=== PATIENT | female | born 1975 | race Caucasian/White ===

== ENCOUNTER 2017-03-28 03:24 | Emergency (ER) | payer SELFPAY ==
[~2017-03-28] VITALS: Ht 154.9 cm; Wt 76.6 kg
[2017-03-28 03:24] VITALS: Ht 154.9 cm; Wt 76.6 kg
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
[2017-03-28] MEDS ORDERED: BUPIVACAINE 0.5% (5mg/ml) 30ml INJ SDV INFIL ONE (03:30)
--- NOTE | 2017-03-28 03:35 | NUR ---
BATHROOM PT AMBULATORY TO BATHROOM TO VOID
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
--- NOTE | 2017-03-28 03:43 | NUR ---
PHONE PT ON PHONE WITH FEMALE FRIEND
--- NOTE | 2017-03-28 03:59 | NUR ---
LAB LAB AT BEDSIDE FOR BLOOD DRAW
[2017-03-28] MEDS ORDERED: NO ROUTINE MEDS (04:00)
--- NOTE | 2017-03-28 04:00 | NUR ---
CT PT TAKEN TO CT PER CART
--- NOTE | 2017-03-28 04:05 | NUR ---
ROOM PT RETURNED TO ROOM 1 PER W/C FROM CT
--- NOTE | 2017-03-28 04:11 | NUR ---
LOCAL BUPIVOCAINE USED LOCAL TO LACERATION BY DR STEWART PT SILVANA WELL
--- NOTE | 2017-03-28 04:14 | NUR ---
WOUND CARE WOUND CLEANED WITH CHLORHEXADINE BY DR STEWART
--- NOTE | 2017-03-28 04:17 | NUR ---
SUTURES SUTURES PLACED TO LACERATION BY DR STEWART
[2017-03-28] MEDS ORDERED: NEOMYCIN/POLYM/BACITR OINT PACKET TOP ONE (04:30)
--- NOTE | 2017-03-28 04:55 | NUR ---
OINT/DRSG TRIPLE CARE OINT AND DRSG APPLIED TO WOUND COBAN TO HOLD PRESSURE ON DRSG PT SILVANA WELL
--- NOTE | 2017-03-28 05:00 | NUR ---
INSTRUCTIONS DISMISSAL INSTRUCTIONS GIVEN TO PT VERBALIZED UNDERSTANDING OF ALL
[2017-03-28 05:02] VITALS: BP 132/90; PULSE 114; RESP 16; TEMP 98.2; O2SAT 96
--- NOTE | 2017-03-28 05:02 | NUR ---
DISMISS PT DISMISSED AMBULATORY WILL CALL FOR [facility] FROM [facility]
--- NOTE | 2017-03-29 09:35 | DI ---
Indication: ITS.REASON: fall, right frontal head injury PROCEDURE: CT HEAD W/O CONTRAST: Encounter: Initial Comparison: None Technique: Axial CT images through the head were performed without contrast. Iterative Reconstruction dose reducing technique was utilized. FINDINGS: The ventricles are of normal size, shape, and configuration for the patient's age. There is no evidence of acute intracranial hemorrhage, midline displacement, or mass effect. The CT attenuation of the brain parenchyma is normal within the cerebellum, brain stem, and cerebral hemispheres. The tympanic cavities and mastoid air cells are free of appreciable disease. There are no definite fractures of the skull base, calvarium, or visualized portion of the midface. Right frontal scalp laceration and swelling. IMPRESSION: No CT evidence of acute traumatic intracranial injury. There is a preliminary report by [employer]. .
== END 2017-03-28 05:02 | disposition home or self-care (01) ==
LOC: ED 03:24
DX: S01.81XA Laceration without foreign body of other part of head, initial encounter (principal); F10.120 Alcohol abuse with intoxication, uncomplicated; Y90.6 Blood alcohol level of 120-199 mg/100 ml; W19.XXXA Unspecified fall, initial encounter; Y93.9 Activity, unspecified; Y92.89 Other specified places as the place of occurrence of the external cause; Y99.8 Other external cause status
CPT/HCPCS: 36415; 80307

== ENCOUNTER 2018-04-22 14:44 | Inpatient (IN) ==
[2018-04-22] MEDS ORDERED: LEVOFLOXACIN PB 750 MG/150 ML BAG IV ONE (14:57)
[2018-04-22] MEDS ORDERED: NS 1,000 ML IV ONE (14:57)
[2018-04-22] MEDS: SALINE FLUSH 10ml SYRINGE IVF PRN (15:02)
[2018-04-22] MEDS ORDERED: NS FLUSH BAG 500ml IV PRN (15:06)
--- NOTE | 2018-04-22 15:39 | Emergency Department Report ---
General Adult HPI - General Chief complaint: Medical Emergency Stated complaint: chills, numbness, soa, lower left back pain Time Seen by Provider: 04/22/18 14:57 Source: patient Mode of arrival: ambulatory Limitations: no limitations - History of Present Illness HPI narrative: Patient is a 42 yo female with dysuria and urinary frequency x 2 wks. L sided pain ab pain with radiation to L flank started today. Fever last night and again today. Has had shaking chills today. Ibuprofen at 7am. NO n/v. No h/o UTI or kidney stones. No PCP. Pain 03/02. - Related Data Home Medications Medication Instructions Recorded Confirmed Ibuprofen 800 mg PO Q8H PRN 04/22/18 04/22/18 Allergies Allergy/AdvReac Type Severity Reaction Status Date / Time latex Allergy Intermediate Verified 04/22/18 15:19 acetaminophen Allergy Unknown Verified 04/22/18 15:19 Review of Systems All systems: reviewed and negative except as stated (dysuria, pain in L side, fever, chills, SOA, pain in L side when taking a deep breath) [facility] Patient Stated Medical History Gastroesophageal Reflux Yes Disease Hx Urinary Tract Infection Yes: HX- LONG AGO Other Musculoskeletal Yes: FIBROMYALGIA Depression Yes Post Traumatic Stress Disorder Yes Now No Surgical History: c sect x 3. ganglion cyst removal L wrist. tendon surgery R thumb. tubal Family History: Father - - of food poisoning Mother - arthritis, thyroid d/o - Social History Smoking status: Light tobacco smoker (social smoker. 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 Previously saw Genesis martin in [place]. Physical Exam - Limitations Limitations: no limitations - General General appearance: in no apparent distress - Normal Exams: Head:: Normocephalic without trauma Eyes:: Pupils are PERRLA w/ EOMI Neck:: Full range of motion, without adenopathy Chest/Respirations:: Clear all [place] Cardiovascular:: capillary refill Abdomen:: non-distended Integumentary:: No rashes Neurological:: Patient is alert, and oriented, exams w/o gross deficits Psychiatric:: Patient exhibits, appropriate attention - Cardiovascular Cardiovascular exam: Present: tachycardia - Abdominal Exam Abdominal exam: Present: tenderness (L flank and L side of abd) Course Vital Signs Temperature 101.8 F H 04/22/18 14:47 Pulse Rate 121 H 04/22/18 14:47 Respiratory Rate 36 H 04/22/18 14:47 Blood Pressure 193/106 H 04/22/18 14:47 Pulse Oximetry 100 04/22/18 14:47 Temperature 103.3 F H 04/22/18 15:31 Pulse Rate 129 H 04/22/18 15:15 Respiratory Rate 26 H 04/22/18 15:15 Blood Pressure 146/83 H 04/22/18 15:15 Pulse Oximetry 97 04/22/18 15:15 Medical Decision Making - MDM Narrative Medical decision making narrative: Patient with severe sepsis secondary to pyelo. She has lactate of 3.4. Bolused 2 L NS in ER. Levaquin started after BC's were drawn. Dr Kitchen accepted pt for admission to medical floor. - Lab Data Lab results reviewed: Yes: I reviewed the patient's lab results. Result diagrams: 04/22/18 15:04 04/22/18 15:04 Lab Results 04/22/18 Range/Units 15:04 Turbidity < 20 (0-20) Sodium 143 (134-144) MEQ/L Potassium 3.7 (3.6-5) MEQ/L Chloride 102 (98-107) MEQ/L Carbon Dioxide 24 (22-30) MEQ/L Anion Gap 17 H (5-15) meq/L BUN 14.0 (7-17) MG/DL Creatinine 1.0 (0.7-1.2) mg/dL GFR Calculation 61 BUN/Creatinine Ratio 14 (6-26) RATIO Glucose 102 (65-110) MG/DL Calculated Osmolality 276 (261-280) MOSM/KG Calcium 9.4 (8.4-10.2) MG/DL Total Bilirubin 0.90 (0.20-1.30) MG/DL Icterus Index < 2 (0-7) AST 23 (14-36) U/L ALT 35 (1-35) U/L Alkaline Phosphatase 139 H (38-126) U/L Total Protein 8.9 H (6.3-8.2) g/dL Albumin 4.9 (3.5-5.0) g/dL Globulin 4.0 H (2.4-3.6) G/DL Albumin/Globulin Ratio 1.2 (1.1-2.2) RATIO Plasma Lactate 3.4 H (0.6-2.2) MMOL/L Specimen Hemolysis < 15 (0-25) Disposition Clinical Impression: Pyelonephritis, Severe sepsis - Seen By: midlevel
[2018-04-22] MEDS: NS 1,000 ML IV SCH ×2 (16:59→18:39)
[2018-04-22 17:26] VITALS: BMI 33.0
[2018-04-22] MEDS ORDERED: PROCHLORPERAZINE 10 MG/2 ML INJECTION IVP PRN (17:32)
[2018-04-22] MEDS: NS with KCL 20 mEq 1,000 ML IV SCH (18:01)
--- NOTE | 2018-04-22 18:21 | History & Physical Report ---
History of Present Illness Date: 04/22/18 Chief complaint: Dysuria, Fever/Chills HPI: Alysha Rose is a 42 y/o female who presents to [facility] ED secondary to dysuria and fever/chills. Reports urinary frequency, urgency, and discomfort for the last 2 weeks. Did try over the counter treatments for urinary tract infection and had been drinking cranberry juice to help, but with little improvement of symptoms. This morning, woke up with left flank pain - not had this previously. Was able to go to work, but while working started running temp and developed a sensation of feeling VERY cold and had uncontrolled shaking. Does report nausea but without emesis. Appetite decreased to day-able to keep liquids in. No change in bowel function. No chest pressure or palpitations. Flank pain would make breathing more difficult-hard to take a deep breath due to discomfort. Notes feels achy and crampy in general. No trauma. With worsening symptoms, presents to ED for evaluation. Temp elevated at 101.8, increasing to 103.3 while in ED. HR 120 with RR 26-36. Initial BP elevated at 193 systolic, decreased to 130 systolic. Lab showing normal WBC at 7.6%, but 69% neutrophils and 8% bands. Lactate elevated at 3.4. With concern for severe sepsis syndrome secondary to UTI/Pyelonephritis, Dr Kitchen notified and patient place in inpatient admission status in initiate treatment. Anticipate greater than 2 midnights of care needed. Review of Systems All systems PM: 10-point ROS was reviewed, no additional remarkable complaints except - Constitutional Constitutional: Present: chills, fever(s), increased appetite - EENMT Nose: Present: allergies - Cardiovascular Cardiovascular: Absent: palpitations, edema Vascular: Absent: pedal edema, unilateral swelling - Respiratory Respiratory: Absent: cough, chest congestion - Gastrointestinal Gastrointestinal: Present: nausea. Absent: constipation, diarrhea - Musculoskeletal Musculoskeletal: Present: muscle cramps, myalgias - Neurological Neurological: Absent: focal weakness Past Medical History Medical History Updates: GERD, Fibromyalgia, Seasonal allergies, Depression, PTSD Surgical History: c sect x 3. ganglion cyst removal L wrist. tendon surgery R thumb. tubal Family History: Father at age 57 - suspected food poisoning. Mother living - poor health, arthritis Family History: As Above - Social History Smoking status: Current some day smoker Alcohol intake frequency: a few times a month Household members: children (2 children ) Social history: No PCP Medications Home Medications Medication Instructions Recorded Confirmed Type Ibuprofen 800 mg PO Q8H PRN 04/22/18 04/22/18 History Allergies Allergy/AdvReac Type Severity Reaction Status Date / Time latex Allergy Intermediate Verified 04/22/18 15:19 acetaminophen Allergy Unknown Verified 04/22/18 15:19 Exam Vital Signs: Temperature 101.3 F H 04/22/18 17:23 Pulse Rate 125 H 04/22/18 17:23 Respiratory Rate 16 04/22/18 17:23 Blood Pressure 130/78 04/22/18 17:23 Pulse Oximetry 99 04/22/18 17:23 Telemetry Rhythm: Sinus Tachycardia Height/Weight/BMI: Height 1.57 m Weight 82.1 kg Body Mass Index 33.0 - Constitutional Present: well nourished, well developed, obese, cooperative - Routine HEENT Exam Head: Present: normocephalic, atraumatic Eye: Present: EOMI, PERRL, normal accommodation. Absent: conjunctival icterus ENT: Present: mucous membranes moist - Routine Neck Exam Present: supple, full ROM, trachea midline - Routine Respiratory Exam Present: CTA bilaterally. Absent: prolonged expiratory phase, respiratory distress - Routine Cardiovascular Exam Present: no murmur, tachycardia (Regular ) - Routine Abdominal Exam Present: soft, normoactive bowel sounds, non distended, non tender. Absent: guarding - Routine Extremities Exam Present: no edema, pulses intact. Absent: cyanosis, clubbing - Routine Back/Spine/Pelvis Exam Back/Spine: Present: CVA tenderness (Left side) - Routine Skin Exam Present: intact, warm. Absent: dry (Moist) - Routine Neurological Exam Present: alert, oriented X3, CN II-XII intact, moving all extremities, vision grossly intact, hearing grossly intact, normal speech. Absent: motor deficit, altered mental status - Routine Psychiatric Exam Present: normal affect, normal thought process, cooperative Results - Labs CBC & Chem 7: 04/22/18 15:04 04/22/18 15:04 Assessment and Plan (1) Severe sepsis Current visit: Yes Status: Acute (2) Pyelonephritis Current visit: Yes Status: Acute Assessment and Plan: Assessment Severe sepsis syndrome Manifestations: Tachycardia, Tachypnea, Febrile, Elevated Lactate. Source urine UTI/Pyelonephritis Tachycardia GERD by Hx Fibromyalgia Depression/PTSD by history Obesity with BMI 33.1 Plan Inpatient admission to [facility] for treatment of severe sepsis secondary to UTI/ Pyelonephritis. Anticipate greater than 2 midnights of care needed. Levofloxacin 750mg initiated in ED, will continue daily. Check on blood and urine cultures taken in ED. Give 1L NS bolus in ED. Will repeat another 1L bolus and then change IVF to NS with 20KCl at 150cc/hr. Ibuprofen and heating pain prn pain. Compazine and Zofran prn nausea. RT for tobacco cessation. SCD for DVT prevention. Trend lactate. Will check Procalcitonin with next Lactate. Recheck CBC and BMP in am. Check Mg as potassium low normal. Full code per her requests. Will need to work on PCP for time of discharge. DVT Prophylaxis: SCD's Resuscitation Status: Full Code - Physician Narrative Physician: David Kitchen MD Narrative: Date: 04/22/18 Time: 1814 Sepsis Assessment - Evaluation SIRS Criteria: temperature > 100.9, pulse > 90 beats/minute Severe Sepsis: lactate > 2.0 mg/dL Hospital Course Summary Disclaimer: The visit summary below is not to be considered part of the above Progress Note. Hospital Course: 04/22/18 Admission Inpatient admission to [facility] for treatment of severe sepsis secondary to UTI/ Pyelonephritis. Anticipate greater than 2 midnights of care needed. Levofloxacin 750mg initiated in ED, will continue daily. Check on blood and urine cultures taken in ED. Give 1L NS bolus in ED. Will repeat another 1L bolus and then change IVF to NS with 20KCl at 150cc/hr. Ibuprofen and heating pain prn pain. Compazine and Zofran prn nausea. RT for tobacco cessation. SCD for DVT prevention. Trend lactate. Will check Procalcitonin with next Lactate. Recheck CBC and BMP in am. Check Mg as potassium low normal. Full code per her requests. Will need to work on PCP for time of discharge.
[2018-04-22] MEDS: IBUPROFEN 600 MG TABLET PO PRN (18:35)
[2018-04-23] MEDS: IBUPROFEN 600 MG TABLET PO PRN ×4 (01:06→23:16)
[2018-04-23] MEDS: NS with KCL 20 mEq 1,000 ML IV SCH ×3 (01:07→18:14)
[2018-04-23] MEDS: SALINE FLUSH 10ml SYRINGE IVF PRN ×2 (01:08→13:29)
[2018-04-23] MEDS: LEVOFLOXACIN PB 750 MG/150 ML BAG IV SCH (14:37)
--- NOTE | 2018-04-23 16:01 | Progress Note ---
- Date 04/23/18 Subjective: F/U: Severe sepsis syndrome, Bacteremia with Ecoli, UTI/Pyelonephritis Feeling better today. Not having the fevers and chills like yesterday. Appetite with slight improvement, but still has slight nausea. Less flank pain. Urine with increased output with IVF-notes less discomfort. Not feeling SOA or congested. Not feeling like she is getting too swollen or puffy. No chest pressure or pain. Strength improving. Objective Vital signs: Temperature 97.4 F 04/23/18 07:22 Pulse Rate 84 04/23/18 08:00 Respiratory Rate 16 04/23/18 07:22 Blood Pressure 110/65 04/23/18 07:22 Pulse Oximetry 98 04/23/18 07:22 Height/Weight/BMI: Height 1.57 m Weight 83.2 kg Body Mass Index 33.0 - Constitutional Present: well nourished, well developed, obese, cooperative - Routine HEENT Exam Head: Present: normocephalic, atraumatic Eye: Present: EOMI, PERRL ENT: Present: mucous membranes moist - Routine Respiratory Exam Present: CTA bilaterally. Absent: rales, respiratory distress, rhonchi, wheezes , crackles - Routine Cardiovascular Exam Present: RRR, no murmur - Routine Abdominal Exam Present: soft, normoactive bowel sounds, non distended, non tender. Absent: guarding - Routine Extremities Exam Present: no edema, pulses intact. Absent: cyanosis, clubbing - Routine Musculoskeletal Exam Musculoskeletal: Present: no clubbing or cyanosis, normal strength - Routine Skin Exam Present: dry, warm - Routine Neurological Exam Present: alert, oriented X3, CN II-XII intact, moving all extremities, vision grossly intact, hearing grossly intact, normal speech. Absent: motor deficit, altered mental status - Routine Psychiatric Exam Present: normal affect, normal thought process, cooperative, good insight, good judgment Results - Labs CBC & Chem 7: 04/23/18 04:14 04/23/18 04:14 Microbiology Results: Microbiology 04/22/18 16:48 Urine, Voided (Cc/notcc) Urine Culture - Preliminary Early growth Assessment and Plan (1) Severe sepsis Current visit: Yes Status: Acute (2) Pyelonephritis Current visit: Yes Status: Acute Assessment and Plan: Assessment Severe sepsis syndrome Manifestations: Tachycardia, Tachypnea, Febrile, Elevated Lactate. Source urine Bacteremia with Ecoli UTI/Pyelonephritis Tachycardia Hypokalemia (Not POA) GERD by Hx Fibromyalgia Depression/PTSD by history Obesity with BMI 33.1 Plan Both blood cultures from admit positive for Ecoli. WBC with increase. Clinically , patient feeling better. Continue with levofloxacin 750mg IV daily for antimicrobial coverage, checking c /s. Will decrease IVF to 75cc/hr. Oral potassium 20mEq x2 for replacement. Will give dose of MagOx this evening. Recheck BC. Repeat CBC and BMP in am secondary to sepsis with bacteremia. Will check Procalcitonin. Case discussed with CM. Time spent with patient care 25 minutes. DVT Prophylaxis: SCD's Resuscitation Status: Full Code - Time spent with patient Time with patient PN: 25 minutes - Physician Narrative Physician: David Kitchen MD Narrative: Date: 04/23/18 Time: 162 Hospital Course Summary Disclaimer: The visit summary below is not to be considered part of the above Progress Note. Hospital Course: 04/22/[address] admission to [facility] [place] for treatment of severe sepsis secondary to UTI/ Pyelonephritis. Anticipate greater than 2 midnights of care needed. Levofloxacin 750mg initiated in ED, will continue daily. Check on blood and urine cultures taken in ED. Give 1L NS bolus in ED. Will repeat another 1L bolus and then change IVF to NS with 20KCl at 150cc/hr. Ibuprofen and heating pain prn pain. Compazine and Zofran prn nausea. RT for tobacco cessation. SCD for DVT prevention. Trend lactate. Will check Procalcitonin with next Lactate. Recheck CBC and BMP in am. Check Mg as potassium low normal. Full code per her requests. Will need to work on PCP for time of discharge. 04/23/18 Both blood cultures from admit positive for Ecoli. WBC with increase. Clinically , patient feeling better. Continue with levofloxacin 750mg IV daily for antimicrobial coverage, checking c /s. Will decrease IVF to 75cc/hr. Oral potassium 20mEq x2 for replacement. Will give dose of MagOx this evening.
[2018-04-23] MEDS: ONDANSETRON ODT 4 MG TABLET PO PRN ×2 (16:44→22:25)
[2018-04-23] MEDS ORDERED: MAGNESIUM OXIDE 400 MG TABLET PO ONE (17:30)
[2018-04-24] MEDS: NS with KCL 20 mEq 1,000 ML IV SCH ×3 (08:04→23:35)
--- NOTE | 2018-04-24 11:23 | Progress Note ---
- Date 04/24/18 Subjective: F/U: Severe sepsis syndrome, Bacteremia with Ecoli, UTI/Pyelonephritis Doing well. Does note nausea-Zofran helps. Appetite decreased, but able to keep liquids in. No f/c. Not having urinary pain or discomfort. Breathing well. Strength improving; not dizzy/unsteady when up. Stools stable. Tele showing NSR. Objective Vital signs: Temperature 96.7 F L 04/24/18 08:00 Pulse Rate 79 04/24/18 08:05 Respiratory Rate 18 04/24/18 08:00 Blood Pressure 131/75 04/24/18 08:00 Pulse Oximetry 98 04/24/18 08:00 Rhythm: Normal Sinus Rhythm Height/Weight/BMI: Height 1.57 m Weight 82.3 kg Body Mass Index 33.0 - Constitutional Present: moderate distress, well nourished, average body habitus, obese, cooperative - Routine HEENT Exam Head: Present: normocephalic, atraumatic Eye: Present: EOMI, PERRL, normal accommodation ENT: Present: mucous membranes moist - Routine Respiratory Exam Present: CTA bilaterally. Absent: rales, respiratory distress, rhonchi, wheezes , crackles - Routine Cardiovascular Exam Present: RRR, no murmur - Routine Abdominal Exam Present: soft, non distended, non tender. Absent: normoactive bowel sounds ( decreased), guarding - Routine Extremities Exam Present: no edema, pulses intact - Routine Skin Exam Present: intact, dry, warm - Routine Neurological Exam Present: alert, oriented X3, moving all extremities, vision grossly intact, hearing grossly intact, normal speech. Absent: motor deficit, altered mental status - Routine Psychiatric Exam Present: normal affect, normal thought process, cooperative Results - Labs CBC & Chem 7: 04/24/18 04:50 04/24/18 04:50 Microbiology Results: Microbiology 04/22/18 16:48 Urine, Voided (Cc/notcc) Urine Culture - Preliminary Gram Negative [place] 04/24/18 04:54 Peripheral/Iv Start Blood Culture - Preliminary Culture Initiated - Results Pending 04/24/18 04:50 Peripheral/Iv Start Blood Culture - Preliminary Culture Initiated - Results Pending Assessment and Plan (1) Severe sepsis Current visit: Yes Status: Acute (2) Pyelonephritis Current visit: Yes Status: Acute Assessment and Plan: Assessment Severe sepsis syndrome Manifestations: Tachycardia, Tachypnea, Febrile, Elevated Lactate. Source urine Bacteremia with Ecoli UTI/Pyelonephritis Tachycardia Hypokalemia (Not POA) GERD by Hx Fibromyalgia Depression/PTSD by history Obesity with BMI 33.1 Plan Clinically doing well. WBC normalized. No f/c. Continue with levofloxacin for coverage. C/S pending, but suspect have good coverage. Encourage increase ambulation to improve strength. Patient wondering about discharge today - would consider if c/s return. DVT Prophylaxis: SCD's Resuscitation Status: Full Code - Time spent with patient Time with patient PN: 25 minutes - Physician Narrative Physician: David Kitchen MD Narrative: Date: 04/24/18 Time: 1120 Hospital Course Summary Disclaimer: The visit summary below is not to be considered part of the above Progress Note. Hospital Course: 04/22/18 Admission Inpatient admission to [facility] [place] for treatment of severe sepsis secondary to UTI/ Pyelonephritis. Anticipate greater than 2 midnights of care needed. Levofloxacin 750mg initiated in ED, will continue daily. Check on blood and urine cultures taken in ED. Give 1L NS bolus in ED. Will repeat another 1L bolus and then change IVF to NS with 20KCl at 150cc/hr. Ibuprofen and heating pain prn pain. Compazine and Zofran prn nausea. RT for tobacco cessation. SCD for DVT prevention. Trend lactate. Will check Procalcitonin with next Lactate. Recheck CBC and BMP in am. Check Mg as potassium low normal. Full code per her requests. Will need to work on PCP for time of discharge. 04/23/18 Both blood cultures from admit positive for Ecoli. WBC with increase. Clinically , patient feeling better. Continue with levofloxacin 750mg IV daily for antimicrobial coverage, checking c /s. Will decrease IVF to 75cc/hr. Oral potassium 20mEq x2 for replacement. Will give dose of MagOx this evening. 04/24/18 Clinically doing well. WBC normalized. No f/c. Continue with levofloxacin for coverage. C/S pending, but suspect have good coverage. Encourage increase ambulation to improve strength. Patient wondering about discharge today - would consider if c/s return.
[2018-04-24] MEDS: LEVOFLOXACIN PB 750 MG/150 ML BAG IV SCH (14:22)
[2018-04-24] MEDS: IBUPROFEN 600 MG TABLET PO PRN (14:22)
[2018-04-24 23:41] VITALS: RESP 16
[2018-04-25 08:01] VITALS: BP 127/73; PULSE 80; TEMP 97.1; O2SAT 97
--- NOTE | 2018-04-25 10:33 | Progress Note ---
- Date 04/25/18 Subjective: F/U: sepsis secondary to UTI, bacteremia. Alysha is seen this morning while sleeping in bed. She reports that she feels much better today and is eager for discharge home. She denies any complaints or concerns. No chest pain, shortness of breath, abdominal pain, nausea, vomiting or dysuria. Her appetite is back to normal and urinary output is stable. Labs are unremarkable. Procalcitonin trending down (7.47-->3.99). Repeat blood cultures remain negative. UA culture sensitive to levofloxacin. Objective Vital signs: Temperature 97.1 F 04/25/18 07:57 Pulse Rate 80 04/25/18 07:57 Respiratory Rate 16 04/25/18 07:57 Blood Pressure 127/73 04/25/18 07:57 Pulse Oximetry 97 04/25/18 07:57 Rhythm: Normal Sinus Rhythm Height/Weight/BMI: Height 5 ft 2 in Weight 179 lb 10.828 oz Body Mass Index 33.0 Comments: Resting in bed. - Constitutional Present: no acute distress, well nourished, well developed, obese, cooperative - Routine HEENT Exam Head: Present: normocephalic, atraumatic Eye: Present: PERRL. Absent: conjunctival icterus ENT: Present: mucous membranes moist, oropharynx clear - Routine Respiratory Exam Present: CTA bilaterally. Absent: respiratory distress, wheezes - Routine Cardiovascular Exam Present: RRR, S1, S2 - Routine Abdominal Exam Present: soft, normoactive bowel sounds, non distended - Routine Extremities Exam Present: no edema, full ROM, pulses intact - Routine Back/Spine/Pelvis Exam Back/Spine: Present: full ROM. Absent: CVA tenderness, vertebral tenderness - Routine Musculoskeletal Exam Musculoskeletal: Present: no clubbing or cyanosis, moving extremities well - Routine Skin Exam Present: intact, dry, warm Comments: Afebrile. - Routine Neurological Exam Present: alert, oriented X3, CN II-XII intact, moving all extremities, hearing grossly intact, normal speech - Routine Lymphatic Exam Lymphatic: Absent: lymphedema - Routine Psychiatric Exam Present: normal affect, cooperative Results - Labs CBC & Chem 7: 04/25/18 05:40 04/25/18 05:40 Microbiology Results: Microbiology 04/22/18 16:48 Urine, Voided (Cc/notcc) Urine Culture - Final Escherichia coli 04/24/18 04:54 Peripheral/Iv Start Blood Culture - Preliminary No Growth After 1 Day 04/24/18 04:50 Peripheral/Iv Start Blood Culture - Preliminary No Growth After 1 Day Assessment and Plan (1) Pyelonephritis Current visit: Yes Status: Acute (2) Severe sepsis Current visit: Yes Status: Acute Assessment and Plan: Assessment Severe sepsis syndrome - resolved. Manifestations: Tachycardia, Tachypnea, Febrile, Elevated Lactate. Source urine Bacteremia with Ecoli UTI/Pyelonephritis Tachycardia - resolved. Hypokalemia (Not POA) - resolved GERD by Hx Fibromyalgia Depression/PTSD by history Obesity with BMI 33.1 Plan Patient is doing very well and eager for discharge. Anticipate discharge today or near future. Labs unremarkable. Procalcitonin trending down (7.47-->3.99). Patient remains afebrile. Continue levofloxacin for coverage of E.coli. Urine and blood culture sensitivity to levofloxacin. Continue to encourage increase ambulation to improve strength. DVT Prophylaxis: SCD's Resuscitation Status: Full Code - Time spent with patient Time with patient PN: 30 minutes - Physician Narrative Physician: David Kitchen MD Narrative: Date: 04/25/18 Time: 1028 Have independently interviewed and examined pt. Chart reviewed. Case discussed with my PA. Care plan developed with my supervision; agree with above. Doing well this morning. No f/c. Breathing well. Eating well. No nausea or ab pain. Feels ready to go home. Lungs: clear bilaterally CV: regular AB: soft nt/nd +BS MSE: awake alert appropriate Plan: Will discharge to home. IV Levaquin today, then will be on Cipro 500mg BID for 7 days. Plenty of fluids. Establish PCP with [facility]. See orders for details. Hospital Course Summary Disclaimer: The visit summary below is not to be considered part of the above Progress Note. Hospital Course: 04/22/18 Admission Inpatient admission to [facility] [place] for treatment of severe sepsis secondary to UTI/ Pyelonephritis. Anticipate greater than 2 midnights of care needed. Levofloxacin 750mg initiated in ED, will continue daily. Check on blood and urine cultures taken in ED. Give 1L NS bolus in ED. Will repeat another 1L bolus and then change IVF to NS with 20KCl at 150cc/hr. Ibuprofen and heating pain prn pain. Compazine and Zofran prn nausea. RT for tobacco cessation. SCD for DVT prevention. Trend lactate. Will check Procalcitonin with next Lactate. Recheck CBC and BMP in am. Check Mg as potassium low normal. Full code per her requests. Will need to work on PCP for time of discharge. 04/23/18 Both blood cultures from admit positive for Ecoli. WBC with increase. Clinically , patient feeling better. Continue with levofloxacin 750mg IV daily for antimicrobial coverage, checking c /s. Will decrease IVF to 75cc/hr. Oral potassium 20mEq x2 for replacement. Will give dose of MagOx this evening. 04/24/18 Clinically doing well. WBC normalized. No f/c. Continue with levofloxacin for coverage. C/S pending, but suspect have good coverage. Encourage increase ambulation to improve strength. Patient wondering about discharge today - would consider if c/s return. 04/25/18 Patient is doing very well and eager for discharge. Labs unremarkable. Procalcitonin trending down (7.47-->3.99). Patient remains afebrile. Continue levofloxacin for coverage of E.coli. Urine and blood culture sensitivity to levofloxacin/ciprofloxacin. Continue to encourage increase ambulation to improve strength. Will discharge to home. Ciprofloxacin 500mg BID for 7 days starting tomorrow - will give a 10 day course. May return to work on 04/28/18. Establish primary care with [facility]. See orders for details.
[2018-04-25] MEDS: NS with KCL 20 mEq 1,000 ML IV SCH (10:47)
[2018-04-25] MEDS ORDERED: LEVOFLOXACIN PB 750 MG/150 ML BAG IV SCH (11:00)
--- NOTE | 2018-04-25 11:01 | Work/School Release ---
Work/School Release - Date Date: 04/25/18 - Work Release Excused for:: Alysha Rose was hospitalized at [facility] from April 22 until April 252017. She may return to work on April 28, 2018.
--- NOTE | 2018-04-25 11:04 | Discharge Summary ---
Discharge Information Date of admission: 04/22/18 16:37 Anticipated date of discharge: 04/25/18 Attending Physician: David Kitchen MD - Discharge Diagnosis (1) Severe sepsis Status: Acute (2) Pyelonephritis Status: Acute Discharge diagnosis Severe sepsis syndrome - resolved. Manifestations: Tachycardia, Tachypnea, Febrile, Elevated Lactate. Source urine Associated conditions and complications Bacteremia with Ecoli UTI/Pyelonephritis Tachycardia - resolved. Hypokalemia (Not POA) - resolved GERD by Hx Fibromyalgia Depression/PTSD by history Obesity with BMI 33.1 - Laboratory Labs: Admit Lab 04/22/18 15:04 WBC 7.6 Hgb 14.8 Hct 44.9 MCV 96.4 Plt Count 214 Neutrophils % (Manual) 69.0 H Band Neutrophils % 8.0 H Lymphocytes % (Manual) 21.0 L Eosinophils % (Manual) 1.0 Basophils % (Manual) 1.0 Admit Lab 04/22/18 15:04 Sodium 143 Potassium 3.7 Chloride 102 Carbon Dioxide 24 Anion Gap 17 H BUN 14.0 Creatinine 1.0 GFR Calculation 61 BUN/Creatinine Ratio 14 Glucose 102 Calculated Osmolality 276 Calcium 9.4 Total Bilirubin 0.90 AST 23 ALT 35 Alkaline Phosphatase 139 H Total Protein 8.9 H Albumin 4.9 Globulin 4.0 H Albumin/Globulin Ratio 1.2 Plasma Lactate 3.4 H 04/25/18 05:40 04/25/18 05:40 - Microbiology Microbiology 04/22/18 16:48 Urine, Voided (Cc/notcc) Urine Culture - Final Escherichia coli 04/22/18: 2 of 2 Blood cultures positive for E Coli. History of Present Illness HPI: Alysha Rose is a 42 y/o female who presents to [facility] secondary to dysuria and fever/chills. Reports urinary frequency, urgency, and discomfort for the last 2 weeks. Did try over the counter treatments for urinary tract infection and had been drinking cranberry juice to help, but with little improvement of symptoms. This morning, woke up with left flank pain - not had this previously. Was able to go to work, but while working started running temp and developed a sensation of feeling VERY cold and had uncontrolled shaking. Does report nausea but without emesis. Appetite decreased to day-able to keep liquids in. No change in bowel function. No chest pressure or palpitations. Flank pain would make breathing more difficult-hard to take a deep breath due to discomfort. Notes feels achy and crampy in general. No trauma. With worsening symptoms, presents to ED for evaluation. Temp elevated at 101.8, increasing to 103.3 while in ED. HR 120 with RR 26-36. Initial BP elevated at 193 systolic, decreased to 130 systolic. Lab showing normal WBC at 7.6%, but 69% neutrophils and 8% bands. Lactate elevated at 3.4. With concern for severe sepsis syndrome secondary to UTI/Pyelonephritis, Dr Kitchen notified and patient place in inpatient admission status in initiate treatment. Anticipate greater than 2 midnights of care needed. For complete details fo the H&P refer to that document. Objective Vital signs: Temperature 97.1 F 04/25/18 07:57 Pulse Rate 80 04/25/18 07:57 Respiratory Rate 16 04/25/18 07:57 Blood Pressure 127/73 04/25/18 07:57 Pulse Oximetry 97 04/25/18 07:57 Rhythm: Normal Sinus Rhythm Height/Weight/BMI: Height 1.57 m Weight 81.5 kg Body Mass Index 33.0 Hospital Course This is a general summary of the patient's hospital course. For more details refer to the complete medical record. Hospital course: 04/22/18 Admission Inpatient admission to [facility] for treatment of severe sepsis secondary to UTI/ Pyelonephritis. Anticipate greater than 2 midnights of care needed. Levofloxacin 750mg initiated in ED, will continue daily. Check on blood and urine cultures taken in ED. Give 1L NS bolus in ED. Will repeat another 1L bolus and then change IVF to NS with 20KCl at 150cc/hr. Ibuprofen and heating pain prn pain. Compazine and Zofran prn nausea. RT for tobacco cessation. SCD for DVT prevention. Trend lactate. Will check Procalcitonin with next Lactate. Recheck CBC and BMP in am. Check Mg as potassium low normal. Full code per her requests. Will need to work on PCP for time of discharge. 04/23/18 Both blood cultures from admit positive for Ecoli. WBC with increase. Clinically , patient feeling better. Continue with levofloxacin 750mg IV daily for antimicrobial coverage, checking c /s. Will decrease IVF to 75cc/hr. Oral potassium 20mEq x2 for replacement. Will give dose of MagOx this evening. 04/24/18 Clinically doing well. WBC normalized. No f/c. Continue with levofloxacin for coverage. C/S pending, but suspect have good coverage. Encourage increase ambulation to improve strength. Patient wondering about discharge today - would consider if c/s return. 04/25/18 Patient is doing very well and eager for discharge. Labs unremarkable. Procalcitonin trending down (7.47-->3.99). Patient remains afebrile. Continue levofloxacin for coverage of E.coli. Urine and blood culture sensitivity to levofloxacin/ciprofloxacin. Continue to encourage increase ambulation to improve strength. Will discharge to home. Ciprofloxacin 500mg BID for 7 days starting tomorrow - will give a 10 day course. May return to work on 04/28/18. Establish primary care with [facility]. See orders for details. Time spent with patient: discharge greater than 30 minutes Resuscitation Status: Full Code Discharge Plan - Discharge Disposition Discharge Date: 04/25/18 Disposition: Discharged Home, Self-Care *Condition: Stable for Transport Reason For Visit (Visit label in EMR): Sepsis secondary to UTI/Pyelo - Discharge Medications *Discharge Medications: New Ciprofloxacin [Cipro 500 mg] 500 mg PO BID #14 tab Continue Ibuprofen 800 mg PO Q8H PRN PRN Reason: Pain - Discharge Packet/Instructions *Diet: Regular diet, plenty of fluids *Activity: As tolerated; may return to work on 04/28/18. *Pain Management/Treatment: Continue prior home pain medications. *Wound Care: n/a Additional Instructions: Cranberry juice (or capsules) may help with urinary symptoms. Yogurt good to use while on antibiotics to help bowel function. Call [facility] on Thursday to set up Hospital follow up and establish primary care. *Expected Signs/Symptoms: Resolution of urinary pain/buring. *Notify Physician if: Temp >100.4. Shaking chills. Uncontrolled diarrhea. *During Business Hours Contact: [facility] *After Business Hours Contact: Call [facility] and have your care provider contacted. *Pending Lab/Results: No Pending Lab - Referrals/Follow Up *Referrals/Follow Up: Latrell Duran DO [Physician] - 1 Week (Hospital follow up for Ecoli UTI/Pyelo and Ecoli Bacteremia -- needs to establish primary care. ) - Patient Handouts Patient Handouts: Urinary Tract Infection in Women (GEN), Sepsis (GEN) - Dismissal Complete Discharge Instructions are:: Complete Physician Narrative - Narrative Physician: David Kitchen MD Attestation Narrative: Date: 04/25/18 Time: 1101 I have independently interviewed and examined patient prior to discharge. See my progress note for details. Medically stable for discharge to home.
[2018-04-25] MEDS ORDERED: LEVOFLOXACIN 750 MG TABLET PO SCH (12:00)
== END 2018-04-25 12:53 | disposition home or self-care (01) | DRG 872 ==
LOC: ED 14:44 → EDHOLD 16:37 → MED 17:18
PROVIDERS: ADMIT Hospitalist; ATTEND Hospitalist